=== PATIENT | male | born 1970 | race Caucasian/White ===

== ENCOUNTER 2021-08-26 16:49 | Emergency (ER) | payer OTHER, SELFPAY ==
[2021-08-26] VITALS (18 sets, daily range): BP systolic 100–116; BP diastolic 57–69; PULSE 66–98; RESP 14–27; TEMP 36.2; O2SAT 95–100
--- NOTE | ~2021-08-26 | CT_ITS ---
EXAMINATION: CT abdomen pelvis w con DATE: 08/26/2021 18:29 INDICATION: abd pain TECHNIQUE: Computed tomography (CT) of the abdomen and pelvis was performed with 100 mL Omnipaque-300 intravenous contrast. Automated exposure control and iterative reconstruction technique were employe d. The dose-length product was 1212.65 mGy-cm. COMPARISON: None. FINDINGS: Lower thorax: Coronary artery calcification. Liver: Shrunken, heterogeneous and nodular liver parenchyma. Simple right lobe cyst Biliary/Gallbladder: Mild wall thickening, nonspecific in the setting of liver disease. Cholelithiasi s. No bile duct dilation. Pancreas: Mild atrophy. Vascular versus chronic calcifications. Spleen: Enlarged. Adrenals:Left myelolipoma. Kidneys: No mass, stone, or hydronephrosis. GI tract: No small or large bowel dilation. Normal appendix. Mesentery/Peritoneum: No ascites, mass, or free air. Upper abdominal varices. Retroperitoneum: No mass. Atherosclerotic abdominal aortic and/or arterial calcifications. Pelvis: Pelvic organs are within normal limits. Soft Tissues: Soft tissues and body wall unremarkable. Bones: Moderate anterior wedge deformity at L3. IMPRESSION: Acute versus chronic moderate wedge compression fracture at L3, correlate with pain/point tenderness. Cirrhosis and portal hypertension. Nonspecific gallbladder wall thickening, likely related to chroni c liver disease. Reviewed, dictated and finalized at location K. IMPRESSION: Acute versus chronic moderate wedge compression fracture at L3, correlate with pain/point tenderness. Cirrhosis and portal hypertension. Nonspecific gallbladd er wall thickening, likely related to chronic liver disease.
--- NOTE | ~2021-08-26 | XR_ITS ---
EXAMINATION: XR chest 2V Exam Date/Time: 08/26/2021 17:15 CDT HISTORY: L flank pain Comparison: None available. RESULT: Lines, tubes, and devices: None. Lungs and pleura: Clear. Cardiomediastinal silhouette: Normal cardiomediastinal silhouette. Other: No acute osseous or upper abdominal finding. IMPRESSION: No acute cardiopulmonary process. Reviewed, dictated and finalized at location K.
--- NOTE | 2021-08-26 16:59 | ECG_ITS ---
Measurements Intervals [place] Rate: 70 P: 58 CO: 171 QRS: 85 QRSD: 106 T: 56 QT: 403 QTc: 435 Interpretive Statements SINUS RHYTHM WITHIN NORMAL LIMITS NO PREVIOUS ECG AVAILABLE FOR COMPARISON Electronically Signed On 08-27-2021 7:09:35 CDT by Mina Cantu M.D.
--- NOTE | 2021-08-26 17:16 | PC.NURSE ---
pt. to XR
[2021-08-26 17:19] LABS: Basophils Percent Auto 0.5 % (0.2-1.2); Eosinophils Absolute Auto 0.7 K/mm3 (0-0.3); Eosinophils Percent Auto 8.2 % (0-4.4); Hematocrit 39.2 % (42.0-52.0); Hemoglobin 13.1 g/dL (14.0-18.0); Immature Granulocyte Absolute 0.01 K/mm3 (0.00-0.031); Immature Granulocyte Percent A 0.1 % (0-0.5); Immature Platelet Fraction Pct 7.2 % (0.9-11.2); Lymphocytes Percent Auto 22.6 % (18.3-44.2); Mean Corpuscular HGB Conc 33.4 g/dl (32-36); Mean Corpuscular Hemoglobin 31.6 pg (26-34); Mean Corpuscular Volume 94.5 fl (80-100); Mean Platelet Volume 11.5 fl (7.4-10.4); Monocytes Absolute Auto 1.1 K/mm3 (0.1-0.6); Monocytes Percent Auto 14.1 % (2.6-8.5); Neutrophils Absolute Auto 4.3 K/mm3 (1.3-6.7); Neutrophils Percent Auto 54.5 % (45.5-73.1); Platelet Count Result 105 k/mm3 (150-375); Red Blood Count 4.15 M/mm3 (4.6-6.20); Red Cell Distribution Width 13.1 % (11.5-14.5)
[2021-08-26 17:29] LABS: INR 1.5; Prothrombin Time 17.4 Seconds (11.1-14.7)
[2021-08-26 17:31] LABS: Partial Thromboplastin Time 33.6 SECONDS (22.3-36.8)
--- NOTE | 2021-08-26 17:32 | ED.ABDPAIN ---
HPI - Abdominal Pain General Chief Complaint: Abdominal Pain Stated Complaint: abd pain Time Seen by Provider: 08/26/21 16:50 Source: RN notes reviewed History of Present Illness HPI narrative: Patient presents emergency department from home for left upper quadrant abdominal pain. Patient states he has had the symptoms for the past 2 months. States the pain is located left upper quadrant and radiates around to his back in that region but states it does not go to the midline. He states that nothing tends to make the pain better or worse. Denies any fevers or chills chest pain shortness of breath nausea vomiting diarrhea or any other symptoms. He states that he has not take anything for the pain denies any previous work-up Related Data Allergies Allergy/AdvReac Type Severity Reaction Status Date / Time No Known Allergies Allergy Mild Verified 07/13/07 03:48 Review of Systems Review of Systems: Gen.: Denies fevers or chills ENT: Denies congestion Respiratory: Denies shortness of breath or cough CV: Denies chest pain or palpitations GI: Reports left upper quadrant abdominal pain denies nausea, emesis or diarrhea denies burning, urgency, frequency or hematuria Musculoskeletal: Denies back pain or muscle pain Neuro: Denies numbness, tingling, weakness or focal weakness Skin: Denies rash Except as documented, all other systems reviewed and negative [facility] Past Medical History Medical History (Updated 08/26/21 @ 21:30 by Raymundo Camilo DO) Cirrhosis Social History Social History (Updated 08/26/21 @ 21:27 by Raymundo Camilo DO) Smoking status: Never smoker Exam Narrative: APPEARANCE: No acute distress, nontoxic, resting in bed EYES: EOMI HEENT: Normocephalic, atraumatic, OMM RESPIRATORY: No respiratory distress Clear to auscultation bilaterally with no rhonchi wheezing or rales. CARDIOVASCULAR: Regular rate and rhythm without murmurs rubs or gallops. ABDOMINAL: Soft, nondistended, tender palpation left upper quadrant no tenderness in right upper quadrant right lower quadrant and left lower quadrant no rebound or guarding MUSCULOSKELETAl: Moves all extremities. No clubbing, cyanosis or edema. Back: No midline thoracic or lumbar tenderness palpation no tenderness over the left flank NEURO: Awake and alert. Following commands, speech normal, no focal deficits SKIN:: Warm, dry. No rashes lesions or abrasions PSYCHIATRIC: Normal affect/mood, Course Course Emergency Course: Discussed with patient CT results. He states he did fall approximately 2-1/2 months ago onto his bottom he has nontender on his back over the lumbar spine believe is more likely chronic discussed with patient the compression fracture seen on CT and will follow-up with his PCP Discussed with patient results of workup and diagnosis. Discussed need for follow-up with primary care, proper use of medication, and reasons to return to the emergency department. Patient understands and agrees to current treatment plan discussed with patient follow-up with his PCP as well as will refer to GI for possible EGD as believe this could be related to gastritis Vital Signs Vital signs: Vital Signs Temperature 97.2 F L 08/26/21 16:50 Pulse Rate 98 08/26/21 16:50 Respiratory Rate 20 08/26/21 16:50 Blood Pressure 100/67 08/26/21 16:50 Pulse Oximetry 98 08/26/21 16:50 Oxygen Delivery Room Air 08/26/21 16:50 Temperature 97.2 F L 08/26/21 16:50 Pulse Rate 67 08/26/21 19:17 Respiratory Rate 16 08/26/21 19:17 Blood Pressure 112/67 08/26/21 19:17 Pulse Oximetry 97 08/26/21 19:17 Oxygen Delivery Room Air 08/26/21 16:50 MDM - Abdominal Pain MDM Narrative Medical decision making narrative: Patient's abdomen is soft without significant pain or signs of surgical abdomen on serial exams. Lab and x-ray evaluations are reviewed and patient is felt to be a reasonable candidate for outpatient management. Patient was instructed as
[2021-08-26 18:05] LABS: Alanine Aminotransferase 24 U/L (6-50); Albumin Level 3.8 g/dL (3.5-5.1); Alkaline Phosphatase 149 U/L (38-126); Anion Gap 6 mmol/L (8-16); Aspartate Amino Transferase 33 U/L (17-59); Bilirubin,Total 0.6 mg/dL (0.2-1.3); Blood Urea Nitrogen 32 mg/dL (9-20); Calcium 8.6 mg/dL (8.4-10.2); Carbon Dioxide 27 mmol/L (22-30); Chloride 107 mmol/L (98-107); Estimated CRCL calculation 55 ml/min; Estimated Glomerular Filt Rate 45; Glucose 160 mg/dL (65-110); Lipase 231 U/L (23-300); Potassium 4.2 mmol/L (3.4-5.0); Sodium 140 mmol/L (137-145)
[2021-08-26 18:17] LABS: Troponin I 0.025 ng/mL (0.000-0.034)
[2021-08-26] MEDS: MORPHINE SULFATE (*CRX) 4 MG/ML INJ IV PUSH (19:35)
[2021-08-26 20:15] LABS: Appearance Urine Clear (Clear); Bilirubin Urine 1+ (Negative); Blood Urine Negative (Negative); Color Urine Yellow (Yellow); Glucose Urine UA Trace mg/dL (Negative); Ketones Urine Trace mg/dL (Negative); Leukocyte Esterase Ur Negative LEU/UL (Negative); Nitrate Urine Negative (Negative); Protein Urine 1+ mg/dL (Negative); Specific Grav Ur 1.015 (1.001-1.035); pH Urine 5.5 (5.0-9.0)
[2021-08-26 20:21] LABS: Troponin I 0.019 ng/mL (0.000-0.034)
[2021-08-26 20:25] LABS: Hyaline Casts Urine 30-49 /lpf; Mucus Urine Rare /lpf; Squamous Epithelial Cell Urine Rare /hpf (Few); WBC Urine 0-3 /hpf
[2021-08-26 20:29] LABS: Add Urine Microscopic? YES
== END 2021-08-26 21:49 | disposition home or self-care (01) ==
PROVIDERS: Emergency Provider Emergency Medicine; PCP Physician Assistant
DX: R10.12 Left upper quadrant pain (principal); K74.60 Unspecified cirrhosis of liver
CPT/HCPCS: 36415; 51702; 71046; 74177; 80053; 81001; 83690; 84484; 85025; 85055; 85610; 85730; 93005; 96374; 99284; A9270; J2270; Q9967

== ENCOUNTER 2022-02-16 12:41 | Emergency (ER) | payer OTHER, SELFPAY ==
[2022-02-16] VITALS (8 sets, daily range): BP systolic 155–202; BP diastolic 90–117; PULSE 82–103; RESP 13–18; TEMP 36.6; O2SAT 97–99
--- NOTE | ~2022-02-16 | XR_ITS ---
EXAMINATION: XR chest 1V portable INDICATION: Hypertension TECHNIQUE: Portable AP chest at 1536 hours COMPARISON: 08/26/2021 FINDINGS: The lungs are free of acute opacities. No pleural effusion or pneumothorax. The cardiomedia stinal silhouette is normal. IMPRESSION: 1. No acute cardiopulmonary abnormality. Reviewed, dictated and finalized at location A. AGENT
--- NOTE | 2022-02-16 15:24 | ED.RECABL ---
HPI - Recheck/Abnormal Lab/Rx General Chief Complaint: Recheck/Abnormal Lab/Rx Stated Complaint: HTN, sent over by PCP Time Seen by Provider: 02/16/22 14:31 History of Present Illness HPI narrative: Patient is a 51-year-old male with a history of hypertension, hyperlipidemia, diabetes presenting with high blood pressure. Patient states that he had a home health visit by an [employer] today and was found to be hypertensive with systolics in the 200s. She checked his blood pressure 3 times and it remained above 200 so she advised to come to the ER for evaluation. Patient states that he feels great. He denies any complaints. No headache, vision changes, numbness or weakness, chest pain, palpitations, lightheadedness, shortness of breath, leg swelling. States that he is on lisinopril for hypertension. He denies abdominal pain, fevers or chills, nausea or vomiting, dysuria, diarrhea. Related Data Allergies Allergy/AdvReac Type Severity Reaction Status Date / Time No Known Allergies Allergy Mild Verified 02/16/22 15:17 Review of Systems Review of Systems: All systems reviewed & are unremarkable except as noted in HPI and below PMFSH Past Medical History Medical History Cholelithiasis Cirrhosis Social History Social History Smoking status: Never smoker Exam Narrative: GENERAL: Well-appearing, well-nourished, and in no acute distress. HEAD: Normocephalic, atraumatic. EYES: PERRLA and EOMI. ENT: Nares clear, no rhinorrhea or epistaxis. Mucous membranes moist. NECK: Supple. CHEST: Clear to auscultation. No respiratory distress. HEART: Regular rate and rhythm. No murmur heard. Normal peripheral pulses. ABDOMEN: Soft, nontender, nondistended, normal active bowel sounds. EXTREMITIES: Normal range of motion. No edema. SKIN: Warm, dry, no rash. NEURO: No focal deficits. Alert and oriented x3. PSYCH: Normal mood and affect. Course Vital Signs Vital signs: Vital Signs Temperature 98 F 02/16/22 12:59 Pulse Rate 103 H 02/16/22 12:59 Respiratory Rate 18 02/16/22 12:59 Blood Pressure 202/117 H 12/16/22 12:59 Pulse Oximetry 99 02/16/22 12:59 Oxygen Delivery Room Air 02/16/22 12:59 Temperature 98 F 02/16/22 12:59 Pulse Rate 82 02/16/22 18:33 Respiratory Rate 16 02/16/22 18:33 Blood Pressure 155/96 H 02/16/22 18:33 Pulse Oximetry 97 02/16/22 18:33 Oxygen Delivery Room Air 02/16/22 12:59 MDM - Recheck/Abnormal Lab/Rx MDM Narrative Medical decision making narrative: Patient is a 51-year-old male presenting with high blood pressure. Patient hypertensive here, 170 systolic upon my evaluation. EKG per my interpretation shows normal sinus rhythm, normal axis and intervals, nonspecific T wave abnormalities, no ST elevations or depressions. T wave changes appear new compared to prior EKG. Troponin is 0.039. Patient denies any chest pain. Blood work is otherwise unremarkable. Given the elevated troponin and EKG changes with poorly controlled hypertension, patient was admitted to medicine. While awaiting a bed, patient asked to leave as his mother lives at his house and she needs someone to take care of her. Discussed with the patient that this would be AGAINST MEDICAL ADVICE. Patient voices understanding that risks of leaving AMA include decompensation, permanent disability, and . He is A&O x4 with decision-making capacity. Patient states that he will follow-up with his PCP tomorrow. Patient left the department AMA ambulating steadily. Lab Data 02/16/22 15:50 02/16/22 15:50 Labs: Lab Results 02/16/22 02/16/22 02/16/22 Range/Units 15:50 15:50 16:41 WBC 5.0 (4.5-10.0) K/mm3 RBC 4.97 (4.6-6.20) M/mm3 Hgb 15.8 (14.0-18.0) g/dL Hct 45.6 (42.0-52.0) % MCV 91.8 (80-100) fl MCH 31.8 (26-34) pg MCHC 34.6 (32-36)
--- NOTE | 2022-02-16 15:28 | ECG_ITS ---
Measurements Intervals [place] Rate: 90 P: 67 PA: 170 QRS: 86 QRSD: 95 T: 45 QT: 375 QTc: 459 Interpretive Statements SINUS RHYTHM WITHIN NORMAL LIMITS COMPARED TO ECG 08/26/2021 17:27:57 NO SIGNIFICANT CHANGE Electronically Signed On 02-16-2022 16:50:05 [facility]IK[facility] PRACTITIONER by Mina Cantu M.D.
[2022-02-16 16:00] LABS: Basophils Percent Auto 0.4 % (0.2-1.2); Eosinophils Absolute Auto 0.1 K/mm3 (0-0.3); Eosinophils Percent Auto 1.2 % (0-4.4); Hematocrit 45.6 % (42.0-52.0); Hemoglobin 15.8 g/dL (14.0-18.0); Immature Granulocyte Absolute 0.01 K/mm3 (0.00-0.031); Immature Granulocyte Percent A 0.2 % (0-0.5); Immature Platelet Fraction Pct 5.3 % (0.9-11.2); Lymphocytes Absolute Auto 0.85 K/mm3 (0.9-3.2); Lymphocytes Percent Auto 16.9 % (18.3-44.2); Mean Corpuscular HGB Conc 34.6 g/dl (32-36); Mean Corpuscular Hemoglobin 31.8 pg (26-34); Mean Corpuscular Volume 91.8 fl (80-100); Mean Platelet Volume 10.5 fl (7.4-10.4); Monocytes Absolute Auto 0.7 K/mm3 (0.1-0.6); Monocytes Percent Auto 14.1 % (2.6-8.5); Neutrophils Absolute Auto 3.4 K/mm3 (1.3-6.7); Neutrophils Percent Auto 67.2 % (45.5-73.1); Platelet Count Result 101 k/mm3 (150-375); Red Blood Count 4.97 M/mm3 (4.6-6.20); Red Cell Distribution Width 12.8 % (11.5-14.5)
[2022-02-16 16:08] LABS: Anion Gap 8 mmol/L (8-16); Blood Urea Nitrogen 16 mg/dL (9-20); Calcium 8.9 mg/dL (8.4-10.2); Carbon Dioxide 28 mmol/L (22-30); Chloride 103 mmol/L (98-107); Estimated CRCL calculation 119 ml/min; Estimated Glomerular Filt Rate > 60; Glucose 151 mg/dL (65-110); Potassium 3.6 mmol/L (3.4-5.0); Sodium 139 mmol/L (137-145)
[2022-02-16 16:23] LABS: Troponin I 0.039 ng/mL (0.000-0.034)
--- NOTE | 2022-02-16 17:01 | PC.NURSE ---
diabetic diet dinner tray ordered
[2022-02-16 17:25] LABS: Influenza A QL RT-PCR Negative (Negative); Influenza B QL RT-PCR Negative (Negative); SARS-CoV-2 RNA PCR Negative
--- NOTE | 2022-02-16 18:39 | PC.NURSE ---
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 Patient states he his has cancer and she can not be left home alone. Pt is unable to stay for repeat troponin or admission. Dr. Allan at bedside to discuss risks of leaving with patient. Pt verbalizes understanding and still wishes to leave AMA.
== END 2022-02-16 18:53 | disposition left against medical advice (07) ==
LOC: ANHED 14:44 → ANHIMU 18:39
PROVIDERS: Emergency Provider Emergency Medicine; PCP Physician Assistant; Visit Provider Internal Medicine
DX: I10 Essential (primary) hypertension (principal); R79.89 Other specified abnormal findings of blood chemistry; E78.5 Hyperlipidemia, unspecified; K74.60 Unspecified cirrhosis of liver
CPT/HCPCS: 36415; 71045; 80048; 84484; 85025; 85055; 87636; 93005; 99284